=== PATIENT | male | born 1980 | race Caucasian/White ===

== ENCOUNTER 2017-01-11 07:33 | Day surgery (SDC) | payer BC ==
--- NOTE | 2017-01-07 15:18 | History and Physical Report ---
I saw David in the office on 01/04/2017, in regard to 2 new neck masses. David is a very pleasant 36-year-old male who states that he has had a larger mass on the lateral aspect of his neck that began to drain spontaneously. He was placed on antibiotics and has felt he has done better. He has a similar mass along the hairline posteriorly. PAST MEDICAL HISTORY: Negative for significant illnesses. PAST SURGICAL HISTORY: ORIF left wrist. He currently takes creatine, testosterone, supplements, and he has no known medical allergies. Socially he denies any tobacco or alcohol use. Says he quit smoking in 2010. On exam, height is 6 feet even, weight is 170. He is afebrile. Vital signs are stable. Heart is regular. Lungs are clear. Abdomen is soft. There is a healing, infected, sebaceous cyst in the lateral aspect of his neck on the left. He has a similar cystic mass along his hairline posteriorly. We did discuss excision versus observation of each. He desired surgical excision. The risks including bleeding, infection, recurrence, and he understood this fully. This will be scheduled shortly in the operating room under some mild sedation. Chavo Fleming D.O. Date & Time JOB NUMBER: [] MTDD
[~2017-01-11 07:33] MED LIST: ACETAMINOPHEN 1000MG/100 ML PREMIX IV ONE; CEFAZOLIN 1 Gram 50 ML IVPB ONE
[2017-01-11] MEDS ORDERED: BUPIVACAINE 0.5% W/EPI MPF 30 ML VIAL IVP ONE (11:00)
--- NOTE | 2017-01-12 12:54 | Operative Note ---
DATE OF SURGERY: 01/11/2017 REFERRING: Nataly Blake PA-C PREOPERATIVE DIAGNOSIS: Neck mass x 2. POSTOPERATIVE DIAGNOSIS: Neck mass x 2. OPERATION: Excision of neck mass x 2. INDICATION: This patient is a 36-year-old male I saw in the clinic with 2 enlarging masses in the neck, one off to his left, one in the posterior aspect. We discussed excision versus observations. He desires surgical intervention. Risks included, but are not limited to, bleeding, infection, recurrence, and he understood this fully. The consent was signed. Questions answered. He was taken to the operating room and placed in the supine position. He was rotated into right lateral position. His neck was prepped and draped in the usual sterile fashion. He desired this under straight local, therefore, no sedation was given. At this time, his neck was prepped and draped in the usual sterile fashion. Starting on the left, the area was anesthetized with a total of 3 mL of 0.25% Sensorcaine with epinephrine. An elliptical incision was made around the mass. This was carried down to the subcutaneous tissue. This measured about 2 x 1 cm. This was then fully excised and passed off the field. The wound was closed with 4-0 Monocryl and Dermabond placed. Attention was now turned to the posterior aspect where the area was anesthetized in a similar fashion. This area was lifted out and measured about 1.1 cm into the subcu. This was closed in a similar fashion. He did tolerate the procedure well and was taken to the recovery room in satisfactory condition. Final pathology pending. CC: KONSTANTIN Ogden
== END 2017-01-11 09:35 | disposition home or self-care (01) ==
LOC: SUR 07:33
PROVIDERS: ATTEND Surgery
DX: L72.0 Epidermal cyst (principal)
CPT/HCPCS: 11424; J0690

== ENCOUNTER 2018-09-11 16:55 | Emergency (ER) | payer BC ==
[2018-09-11 18:07] LABS: INFLUENZA A NEGATIVE (NEGATIVE); INFLUENZA B NEGATIVE (NEGATIVE)
--- NOTE | 2018-09-11 18:18 | Emergency Department Record ---
History of Present Illness - General Chief Complaint: Cough Stated Complaint: FEVER,COUGH,BODY ACHES,VOMITING, Time Seen by Provider: 09/11/18 17:57 Source: Patient Mode of Arrival: Ambulatory Limitations: No limitations - History of Present Illness Initial Comments: 37 yo male presents to ED for evaluation of nausea, vomiting and bodyaches that began yesterday. Patient denies productive cough symptoms, denies abdominal pain but does report intermittent cramping. Patient denies urinary symptoms, and denies health problems at his baseline. Patient reports moderate headache without stiff neck. Patient denies taking anything for his symptoms prior to arrival. MD Complaint: Other Onset/Timin -: Hour(s) Severity scale (1-10): 7 Consistency: Constant Improves With: Nothing Worsens With: Nothing Associated Symptoms: Nausea, Vomiting Treatments Prior to Arrival: None - Related Data Previous Rx's Medication Instructions Recorded Ibuprofen [Motrin] 800 mg PO Q6H PRN #30 tab 09/11/18 Ondansetron [Zofran Odt] 4 mg PO Q6H PRN #15 tab.rapdis 09/11/18 Allergies Allergy/AdvReac Type Severity Reaction Status Date / Time No Known Allergies Allergy ANEMIA Verified 09/11/18 17:24 Travel Screening - Travel/Exposure Within Last 30 Days Have you traveled within the last 30 days?: No - Travel/Exposure Within Last Year Have you traveled outside the [place] in the last year?: No - Additonal Travel Details Have you been exposed to anyone with a communicable illness?: No - Travel Symptoms Symptom Screening: None Review of Systems Constitutional: Denies: Chills, Fever, Malaise, Night sweats Eyes: Denies: Eye discharge, Eye pain ENT: Denies: Congestion, Ear pain, Epistaxis Respiratory: Reports: Cough Cardiovascular: Denies: Chest pain, Dyspnea on exertion Endocrine: Denies: Fatigue, Heat or cold intolerance Gastrointestinal: Reports: Nausea, Vomiting Genitourinary: Denies: Incontinence, Retention Musculoskeletal: Reports: Myalgia. Denies: Arthralgia, Back pain, Gout, Joint swelling Skin: Denies: Bruising, Change in color Neurological: Reports: Headache. Denies: Abnormal gait, Confusion, Seizure Psychiatric: Denies: Anxiety Hematological/Lymphatic: Denies: Anemia, Blood Clots Past Medical History - SOCIAL HISTORY Smoking Status: Former smoker Alcohol Use: None Drug Use: None - RESPIRATORY Hx Respiratory Disorders: No - CARDIOVASCULAR Hx Cardio Disorders: No - NEURO Hx Neuro Disorders: No - GI Hx GI Disorders: No - Hx Genitourinary Disorders: No - ENDOCRINE Hx Endocrine Disorders: No - MUSCULOSKELETAL Hx Musculoskeletal Disorders: No - PSYCH Hx Psych Problems: No - HEMATOLOGY/ONCOLOGY Hx Hematology/Oncology Disorders: No Family Medical History Any Significant Family History?: Yes Hx Cancer: Grandparents Hx Diabetes: Father Hx HTN: Father Hx Stroke: Father *Stroke Comment: 3 TIAs Physical Exam - General General Appearance: Alert, Oriented x3, Cooperative, Moderate distress Limitations: No limitations - Head Head exam: Atraumatic, Normocephalic, Normal inspection Head exam detail: negative: Abrasion, Contusion, Santamaria's sign, General tenderness, Hematoma, Laceration - Eye Eye exam: Normal appearance. negative: Conjunctival injection, Periorbital swelling, Periorbital tenderness, Scleral icterus - ENT Ear exam: negative: Auricular hematoma, Auricular trauma Nasal Exam: negative: Active bleeding, Discharge, Dried blood, Foreign body Mouth exam: negative: Drooling, Laceration, Muffled voice, Tongue elevation - Neck Neck exam: Normal inspection. negative: Meningismus, Tenderness - Respiratory Respiratory exam: Normal lung sounds bilaterally. negative: Rales, Respiratory distress, Rhonchi, Stridor - Cardiovascular Cardiovascular Exam: Regular rate, Normal rhythm, Normal heart sounds - GI/Abdominal GI/Abdominal exam: Soft. negative: Rebound, Rigid, Tenderness - Rectal Rectal exam: Deferred - exam: Deferred - Extremities Extremities exam: Normal inspection. negative: Calf tenderness, Pedal edema, Tenderness - Back Back exam: Denies: CVA tenderness (R), CVA tenderness (L) - Neurological Neurological exam: Alert, Normal gait, Oriented X3 - Psychiatric Psychiatric exam: Normal affect, Normal mood - Skin Skin exam: Normal color. negative: Abrasion Type of lesion: negative: abrasion Course Vital Signs 09/11/18 17:19 Temperature 99.4 F Pulse Rate 83 Respiratory 16 Rate Blood Pressure 121/74 Pulse Ox 99 - Reevaluation(s) Reevaluation #1: Patient was seen and examined Offered blood work and IVF's anti-emetics and treatment for his myalgias Patient declined. Will discharge the patient with Motrin 800 and Zofran as directed. Patient appears stable for discharge at this time. Medical Decision Making - Lab Data Lab Results 09/11/18 09/11/18 Range/Units 17:40 17:40 Influenza Type A Ag Negative (NEGATIVE) Influenza Type B Ag Negative (NEGATIVE) Group A Strep Screen Negative (NEGATIVE) Disposition Disposition: Discharge Clinical Impression: Viral syndrome Disposition: Home, Self-Care Condition: (2) Stable Instructions: Viral Syndrome (ED) Additional Instructions: Return to ED if your symptoms worsen or if you have any concerns. Zofran and Ibuprofen as directed. Follow-up with your family doctor in 1-3 days as directed. Prescriptions: Ibuprofen [Motrin] 800 mg PO Q6H PRN #30 tab PRN Reason: Pain - Mild To Moderate (1-7) Ondansetron [Zofran Odt] 4 mg PO Q6H PRN #15 tab.rapdis PRN Reason: Nausea/Vomiting Forms: Patient Portal Access Time of Disposition: 18:18 Quality - Quality Measures Quality Measures: N/A - Blood Pressure Screening Does Patient Have Any of the Following: No Blood Pressure Classification: Pre-Hypertensive BP Reading Systolic Measurement: 121 Diastolic Measurement: 74 Screening for High Blood Pressure: < Pre-Hypertensive BP, F/U Documented > [ [id number]] Pre-Hypertensive Follow-up Interventions: Referral to alternative/primary care provider.
[2018-09-11] MEDS: ONDANSETRON 4 MG ODT TABLET SL ONE (18:35)
[2018-09-11] MEDS: IBUPROFEN 400 MG TABLET PO ONE (18:35)
== END 2018-09-11 18:50 | disposition home or self-care (01) ==
LOC: ER 16:55
DX: B34.9 Viral infection, unspecified (principal); R05 Cough; R11.2 Nausea with vomiting, unspecified; R51 Headache; R52 Pain, unspecified; Z87.891 Personal history of nicotine dependence
CPT/HCPCS: 87400; 87880; 99282